=== PATIENT | male | born 1975 | race African-American/Black ===

== ENCOUNTER → 2017-06-22 | Day surgery (SDC) | payer OTHER ==
[~2017-06-22] VITALS: Ht 185.4 cm; Wt 140.7 kg
[2017-06-22] VITALS (10 sets, daily range): BP systolic 108–145; BP diastolic 66–83; PULSE 79–106; RESP 14–20; O2SAT 92–98
[~2017-06-22] MED LIST: Atropine 0.4 mg/mL Inj IVPUSH PRN; CITA40TA13 PO; Dexamethasone 4 mg/mL Inj ONE; EPHEDrine Sulfate 50 mg/mL Inj IVPUSH PRN; EPIN0.3P2 IJ; HYDROcodone-APAP 5-325 mg Tablet PO PRN; Labetalol 5 mg/mL 20 mL Inj IV PRN; Lactated Ringer's 1,000 ML IV SCH; Lactated Ringer's 500 ML IV PRN; Lidocaine 1%-Epi 1:100,000 20 mL Inj INFILTRATE ONE; MetoCLOpramide 5 mg/mL 2 mL Inj IVPUSH PRN; MetoCLOpramide 5 mg/mL 2 mL Inj ONE; Ondansetron 2 mg/mL 2 mL Inj IVPUSH PRN; Ondansetron 2 mg/mL 2 mL Inj ONE; Phenylephrine 10,000 mCg/mL Inj IVPUSH PRN; Propofol 10 mg/mL 20 mL Inj ONE; Sodium Bicarb 1 mEq/mL 50 mL Inj ONE
[2017-06-22] MEDS: Lactated Ringer's 1,000 ML IV SCH ×2 (06:00→06:33)
--- NOTE | 2017-06-22 07:52 | PCM.HPANE ---
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 Admitting Provider: Attending Provider:Jean Wild DO Primary Care Physician:Tyrone Other Provider:Hector Carvajal Anesthesia Reason for Visit Right Index & Middle Finger Trigger Finger Ht/WT & BMI Height (Feet): 6 Height (Inches): 1 Weight (Kilograms): 140.7 Body Mass Index 41.00 Allergies Coded Allergies: Penicillins (Verified Allergy, Severe, ANAPHYLAXIS, 06/16/17) promethazine (Verified Allergy, Severe, headache, nausea, 06/16/17) Kiwi (Verified Allergy, Unknown, 06/16/17) banana (Verified Allergy, Unknown, 06/16/17) coconut (Verified Allergy, Unknown, 06/16/17) lactose (Verified Allergy, Unknown, 06/16/17) strawberry (Verified Allergy, Unknown, 06/16/17) Uncoded Allergies: Bee sting (Allergy, Severe, 07/14/06) Past Anesthesia History Anesthesia History: Denies:: Abnormal Airway, Anesthesia Reactions (PONV after ablation), Difficult Intubation, Fam Anesthesia Reaction Diabetes History Hx Diabetes?: No MRSA MRSA: No Medications Hypertension Medication: No Home Meds Incl Beta Rob: No Reported Medications Epinephrine (Epipen 2-Huseyin)0.3 Mg/0.3 Ml Auto.injct0.3 Mg IJ PRN For Anaphyllaxis 06/16/17 Citalopram 40 Mg [id number] Mg PO DAILY 30 Days Ref 0 06/16/17 Discontinued Scripts Prednisone (PredniSONE)20 Mg [id number] Mg PO TID #15 TABLET Prov:Alexis Estrada MD 10/11/16 Clindamycin 300 Mg [id number] Mg PO QID #30 CAPSULE Ref 0 Prov:Bryn Rm MD 09/25/16 oxyCODONE-Acetaminophen 5-325 mg 1 Each Tablet1-2 Tab PO Q6H PRN For Pain #14 TABLET Ref 0 Prov:Matheus Petersen MD 08/18/15 History History of ENT Problems?: No HEENT History: Denies:: Abnormal Airway Cataracts Difficult Intubation Dysphagia Glaucoma Hearing Problem Sinus Problem TMJ Denture Type: None Teeth Condition: Within Normal Limits Hx of Heart Problems?: Yes Cardiovascular History: Positive for:: Cardiac Surgery (heart ablation 2014 for A fib) Denies:: Chest Pain Congestive Heart Failure Heart Murmur Hypertension Irregular Heartbeat (hx of PAF) Pacemaker Thrombophlebitis Other Cardiac History: Pt states he was seen in follow up briefly after 2015 ablation, and then released from care. Has not seen cardio provider since 2014 Hx of Respiratory Problem?: Yes Respiratory History: Denies:: Asthma COPD Chest Surgery Dyspnea Emphysema Oxygen Administration Pneumonia Tuberculosis Use of C-PAP Machine (DEMETRIUS+- in process of working up) Hx Neurologic Problems?: No Neurological History: Denies:: CVA Headaches Multiple Sclerosis Parkinson's Disease Seizures TIA Hx of GI Problems?: Yes Hx of Problems?: Yes Genitourinary History: Positive for:: Kidney Stones (hx of - passed spontaneously) Denies:: Urinary Tract Infection HX of Peritoneal Dialysis: No Male Hx: Denies:: Prostate Problems Scrotal Mass Testicular Surgery Skin History: Denies:: History Skin Disorders? Pressure Ulcers Hx Musculoskeletal Problems?: Yes Musculoskeletal History: Positive for:: Back Injury (prior back injury- reduced sensation) Musculoskeletal Trauma (trigger fingers right hand index and middle ) Denies:: Fibromyalgia Joint Replacement Myasthenia Gravis Osteoarthritis Hx of Psycho/Social Problems?: Yes Psycho Social History: Positive for:: Anxiety Hx Depression Suicide Attempt (this admission was his fourth attempt) Denies:: Bipolar Disorder Hx Surgeries?: Yes (heidi left shoulder, cardiac ablations) Hx Any Other Health Problems?: Yes Other History: Positive for:: Hospitalization ([facility] april 27) Denies:: Cancer Thyroid Disease History Blood Transfusions: Positive for:: Accept Blood Products? Denies:: Blood Transfuse Reaction Blood Transfusions Hx Diabetes: No Hx Alcohol Use: YesAlcoholic Drinks Per Day: one to two times monthlyHx Substance Use: No Smoking Status: Never Smoker Have You Smoked inLast 12 mo: No Stop/Bang P-Blood Pressure: treated: No B- Body Mass Index > 35 kg/m2: Yes A- Age over 50: No N- Neck Large Circumference: Yes G- Gender Male: Yes Risk Assessment Category Category 1A: Patient has history of documented sleep apnea, and HAS NOT received any narcotic, sedative or anesthesia administration during this stay. Category 1B: Patient has history of documented sleep apnea, and HAS received any narcotic , sedative or anesthesia administration during this stay Category 2: Patient has SUSPECTED Obstructive Sleep Apnea, and HAS received any narcotic , sedative or anesthesia administration during this stay. Category 3: Patient has SUSPECTED Obstructive Sleep Apnea and HAS NOT received narcotic, sedative or anesthesia administration during this stay. Category 4: Outpatient in Procedural Areas with known sleep apnea or who screen positive for High Risk via the STOP/BANG questionnaire. Exam Exam Vital Signs Vital Signs Date Time Temp Pulse Resp B/P Pulse Ox O2 Delivery O2 Flow Rate FiO2 06/22/17 06:43 35.7 80 20 145/83 98 Room Air General Appearance: Alert, Oriented X3, Cooperative, No Acute Distress HEENT/AIRWAY: MP 2, Neck Movement (FROM), Mouth Opening (3 FBMO) Lungs: Clear to Auscultation, Normal Air Movement Heart: Exam Unremarkable, Regular Rate/Rhythm, No Murmurs/Rubs/Gallops Meds/Labs/Diagnostics Admission Meds Current Medications Lactated Ringer's (Lr) 1,000 ml @ 120 mls/hr Q8H20M IV Last administered on t 06:33; Start 06/22/17 at 05:00; Stop 06/22/17 at 13:19 Plan Impression Patient chart reviewed, patient interviewed and anesthestic plan with risks, benefits, and alternatives discussed, and informed consent obtained. NPO per Anesth. Guidelines: Yes ASA Physical Status: ASA2 Mod Systemic Disease Anesthetic Plan: GA Bene/Risks/Altern/Consents: Yes HP Complete Prior to Induction: Yes Other pt refuses johann block or local/mac. Will only accept GA. Rufino Serna MD Jun 22, 2017 06:57
[2017-06-22] MEDS: fentaNYL-PF 50 mCg/mL 2 mL Inj IVPUSH PRN ×2 (08:29→08:31)
--- NOTE | 2017-06-22 09:45 | OP ---
[address] [address] OPERATIVE REPORT PATIENT: SANDOR COOL : 1975 MR#: [id number] ADMIT: 06/22/2017 JOB ID: [id number] DATE OF SURGERY: 06/22/2017 PREOPERATIVE DIAGNOSIS(ES): Right index and middle finger trigger fingers. POSTOPERATIVE DIAGNOSIS(ES): Right index and middle finger trigger fingers. PROCEDURE: Right index and middle finger A1 savannah releases. SURGEON: Jean Wild D.O. ANESTHESIA: General. HISTORY: The patient is a pleasant 42-year-old male with a longstanding history of issues in regards to his right hand. He originally had a foreign body with an infection and subsequently developed trigger fingers to his index and middle finger. Originally presented with injections with cortical steroids, but did not only provide very short-term relief. Thus I gave the patient option to proceed with a right index and middle finger A1 savannah release. He understood the risks include, but not limited to, neurovascular injury, tendon injury, infection, recurrent stiffness, persistent pain, all of which may require further intervention. Patient all questions answered. Consent was signed and placed in the chart. PROCEDURE IN DETAIL: The patient was brought to the operative suite and placed supine on the operating table. Surgical time-out was performed. Everyone in the room was in agreement. After appropriate anesthesia was obtained, the right upper arm tourniquet was applied and the right upper extremity prepped and draped in sterile fashion. Right upper extremity then exsanguinated and tourniquet inflated to 250 mmHg. The patient's right middle finger was approached first with an oblique incision directly overlying the A1 savannah within the palmar crease. The index finger did not have a corresponding increase thus an oblique incision was made directly overlying the A1 savannah. The middle finger dissection was carried down to the flexor tendon sheath at the level of the A1 savannah with care to protect the radial, ulnar, and digital neurovascular bundles. The A1 savannah was identified and incised longitudinally in line with the underlying flexor tendon. The A1 savannah was then released in its entirety. Attention was then turned toward the index finger. Again dissection was carried down directly to the flexor tendon sheath at the level of the A1 savannah. The A1 savannah was identified and incised longitudinally in line with the underlying flexor tendon. Complete release was identified. Copious irrigation was performed followed by closure of the skin with 5-0 nylon in a simple interrupted fashion. The patient was then placed in a bulky soft dressing. ESTIMATED BLOOD LOSS: Less than 1 cc. COMPLICATIONS: None. DISPOSITION: The patient tolerated the procedure well. Anesthesia was reversed. The patient was transferred to PACU for recovery. POSTOPERATIVE PLAN: The patient follow up in office in two weeks. We will remove the patient's sutures at that time and have him start working on range of motion and scar mobilization.
--- NOTE | 2017-06-22 18:25 | PCM.ANEP1 ---
Post Anesthesia PACU Phase 1 Assessment Anesthetic Administered: GA Level of Alertness: Awake, talking QUINONES's with Equal Strength: Yes Pain: No Nausea or Vomiting: No CV Function & Hydration Stable: Yes Airway Device: na Oxygen Delivery: Room Air Lungs: Clear to Auscultation, Normal Air Movement Dermatome Level: Full Sensation PACU Phase 2 Assessment Complications: No Follow up Care: N/A Patient Instructions Provided: N/A Rufino Senra MD Jun 22, 2017 18:25
== END | disposition home or self-care (01) ==
LOC: SAS 06:14
PROVIDERS: ATTEND Orthopaedic Surgery
DX: M65.331 Trigger finger, right middle finger (principal); M65.321 Trigger finger, right index finger; I48.91 Unspecified atrial fibrillation; R00.2 Palpitations; J45.909 Unspecified asthma, uncomplicated; I10 Essential (primary) hypertension; F32.9 Major depressive disorder, single episode, unspecified; G47.30 Sleep apnea, unspecified; Z87.891 Personal history of nicotine dependence
CPT/HCPCS: 26055; J1100; J1885; J2405; J2704; J2765; J3010; J7120